=== PATIENT | female | born 1975 | race African-American/Black ===

== ENCOUNTER 2016-08-16 22:21 | Emergency (ER) | payer OTHER ==
[~2016-08-16] VITALS: Ht 160 cm; Wt 59.0 kg
[~2016-08-16 22:21] MED LIST: FLUT1DIS3 IH; MONT10TA21 PO; P20 PO; PRED10TA PO
[2016-08-16] MEDS ORDERED: METHYLPREDNISOLONE SOD SUCC 125 MG/2 ML VIAL IV STA (22:31)
[2016-08-16] MEDS ORDERED: IPRATROPIUM BROMIDE (0.02%) 0.5MG/2.5ML NEB HHN STA (22:31)
[2016-08-16] MEDS ORDERED: MAGNESIUM 2 G PREMIX 50 ML IV ONE (22:45)
[2016-08-16] MEDS ORDERED: AZITHROMYCIN 500 MG in DEXT 5% WATER 250 ML IV ONE (22:45)
[2016-08-16] MEDS ORDERED: CEFTRIAXONE 1 G PREMIX 50 ML IV ONE (22:45)
[2016-08-16] MEDS ORDERED: SODIUM CHLORIDE 0.9% 1000ML BAG (SEPSIS BOLUS) IV ONE (22:45)
[2016-08-16] MEDS ORDERED: ALBUTEROL (0.083%) 2.5MG/3ML NEB HHN SCH (23:00)
[2016-08-16 23:13] LABS: CHLORIDE 107 mEq/L (98-107); INDEX HEMOLYSI 1 (1-3); INDEX ICTERIC 1 (1-4); INDEX LIPEMIC 1 (1-3)
[2016-08-16 23:16] LABS: ALBUMIN 3.4 g/dL (3.4-5.0); ANION GAP 14; CALCIUM 8.6 mg/dL (8.5-10.1); CARBON DIOXIDE 24 mEq/L (21-32); LIPASE 241 IU/L (73-393); UREA NITROGEN BLOOD 8 mg/dL (7-21)
[2016-08-16 23:17] LABS: ETHANOL BLOOD < 10 mg/dL
[2016-08-16 23:18] LABS: HCG SCREEN NEGATIVE
[2016-08-16 23:19] LABS: BASOPHILS % 0.5 % (0.0-2.0); HEMATOCRIT. 36.2 % (36.0-48.0); HEMOGLOBIN. 11.9 g/dL (12.0-16.0); MEAN CORPUSCULAR HEMOGLOBIN 30.1 pg (28.0-32.0); MEAN CORPUSCULAR HGB CONC 32.9 g/dL (31.0-37.0); MEAN CORPUSCULAR VOLUME 91.6 fL (81.0-99.0); MEAN PLATELET VOLUME 7.1 fl (7.4-10.4); MONOCYTES % 3.4 % (2.0-8.0); NEUTROPHILS % 81.1 % (40.0-76.0); PLATELET 369 x1000/uL (130-400); RED BLOOD CELL COUNT 3.95 mill/uL (4.2-5.4); WHITE BLOOD COUNT 14.1 x1000/uL (4.5-11.0)
[2016-08-16 23:20] LABS: ALANINE AMINOTRANSFERASE 23 IU/L (13-61); eGFR > 60 mL/min (>60)
[2016-08-16 23:24] LABS: NT PRO B-TYPE NATRIURETIC PEP 326 pg/mL (5-125)
[2016-08-17 00:21] LABS: *AMPHETAMINES SCREEN URINE NEGATIVE (NEGATIVE); *BARBITURATES SCREEN URINE NEGATIVE (NEGATIVE); *BENZODIAZEPINES SCREEN URINE NEGATIVE (NEGATIVE); *COCAINE SCREEN URINE NEGATIVE (NEGATIVE); CANNABINOID URINE SCREEN NEGATIVE (NEGATIVE); ECSTASY MDMA SCREEN URINE NEGATIVE (NEGATIVE); METHADONE URINE SCREEN NEGATIVE (NEGATIVE); OPIATES URINE SCREEN NEGATIVE (NEGATIVE); PHENCYCLIDINE URINE SCREEN NEGATIVE (NEGATIVE)
[2016-08-17 01:06] LABS: BG BASE EXCESS -2.6 mmol/L (-2.0-2.0); BG DEOXYHEMOGLOBIN 1.7 % (0.0-5.0); BG FRACTION INSPIRED OXYGEN 28; BG HCO3 ACT 21.7 mmol/L (22.0-26.0); BG METHEMOGLOBIN 0.3 % (0.0-1.5); BG OXYGEN SATURATION 98.3 % (92.0-98.5); BG PCO2 35.9 mmHg (35.0-45.0); BG PO2 116.1 mmHg (75.0-100.0); BG SAMPLE SITE RIGHT RADIAL; BG TOTAL HEMOGLOBIN 11.6 g/dL (12.0-18.0); BG VENT MODE NASAL CANNULA
[2016-08-17] MEDS ORDERED: IPRATROPIUM BROMIDE (0.02%) 0.5MG/2.5ML NEB HHN STA (01:32)
[2016-08-17] MEDS ORDERED: ALBUTEROL (0.5%) 2.5MG/0.5ML NEB HHN ONE (01:59)
[2016-08-17] MEDS ORDERED: ALBUTEROL (0.083%) 2.5MG/3ML NEB HHN SCH (02:00)
[2016-08-17] MEDS ORDERED: IPRATROPIUM/ALBUTEROL 0.5-3(2.5)MG/3ML NEB ONE ×2 (02:01→02:07)
[2016-08-17 03:16] VITALS: BP 128/76
== END 2016-08-17 03:17 | disposition home or self-care (01) ==
LOC: ER 22:21
DX: J45.901 Unspecified asthma with (acute) exacerbation (principal); I10 Essential (primary) hypertension; Z79.899 Other long term (current) drug therapy
CPT/HCPCS: 36415; 36600; 71010; 80053; 80305; 82375; 82805; 83605; 83690; 83880; 84703; 85025; 85379; 87040; 87086; 87804; 93005; 96365; 96366; 96375; 99285; G0482; J0456; J0696; J2930; J3475; J7030; J7611; Z7610; J7060; J7620

== ENCOUNTER 2024-02-23 10:50 | Inpatient (IN) | payer OTHER ==
[~2024-02-23] VITALS: Ht 160 cm; Wt 62.7 kg
[~2024-02-23 10:50] MED LIST changes: +MONT-46 PO; -MONT10TA21 PO
[2024-02-23 11:58] VITALS: PULSE 65; RESP 22; O2SAT 97
[2024-02-23] MEDS: IPRATROPIUM BROMIDE (0.02%) 0.5MG/2.5ML NEB HHN NR (11:58)
[2024-02-23] MEDS: ALBUTEROL (0.083%) 2.5MG/3ML NEB HHN NR (11:58)
[2024-02-23 12:51] LABS: BG BASE EXCESS -2.2 mmol/L (-2.0-3.0); BG CARBOXYHEMOGLOBIN 0.3 % (0.5-1.5); BG DEOXYHEMOGLOBIN 0.3 % (0.0-5.0); BG FRACTION INSPIRED OXYGEN 60; BG HCO3 ACT 23.3 mmol/L (21.0-28.0); BG METHEMOGLOBIN 0.2 % (0.5-1.5); BG OXYGEN SATURATION 99.7 % (94.0-98.0); BG OXYHEMOGLOBIN 99.2 % (94.0-98.0); BG PCO2 42.6 mmHg (32.0-45.0); BG PH 7.355 (7.350-7.450); BG PO2 290.7 mmHg (83.0-108.0); BG SAMPLE SITE RIGHT RADIAL; BG TOTAL HEMOGLOBIN 9.7 g/dL (12.0-16.0); BG VENT MODE MASK - HHN TX
[2024-02-23] MEDS: METHYLPREDNISOLONE SOD SUCC 125MG/2ML (ACT-O-VIAL) IV NR (13:24)
[2024-02-23] MEDS: MAGNESIUM 2 G PREMIX 50 ML IV NR (13:24)
[2024-02-23] MEDS ORDERED: IPRATROPIUM BROMIDE (0.02%) 0.5MG/2.5ML NEB HHN PRN (13:45)
[2024-02-23 14:49] LABS: HEMATOCRIT. 27.4 % (36.0-48.0); HEMOGLOBIN. 8.7 g/dL (12.0-16.0); MEAN CORPUSCULAR HEMOGLOBIN 26.3 pg (28.0-32.0); MEAN CORPUSCULAR HGB CONC 31.7 g/dL (31.0-37.0); MEAN CORPUSCULAR VOLUME 82.9 fL (81.0-99.0); MEAN PLATELET VOLUME 7.1 fl (7.4-10.4); PLATELET 296 x1000/uL (130-400); RED BLOOD CELL COUNT 3.31 mill/uL (4.2-5.4); RED CELL DISTRIBUTION WIDTH 24.4 % (11.6-14.6); WHITE BLOOD COUNT 7.1 x1000/uL (4.5-11.0)
[2024-02-23 14:55] LABS: DIFFERENTIAL COMMENT 1
[2024-02-23 15:15] LABS: LACTIC ACID 3.9 mmol/L (0.4-2.0)
[2024-02-23] MEDS: SODIUM CHLORIDE 0.45% 1,000 ML IV SCH (15:29)
[2024-02-23] MEDS: METHYLPREDNISOLONE SOD SUCC 40MG/ML (ACT-O-VIAL) IV SCH (15:29)
[2024-02-23 16:19] LABS: CARBON DIOXIDE 22 mEq/L (21-32); CHLORIDE 107 mEq/L (98-107); POTASSIUM 3.3 mEq/L (3.5-5.1); SODIUM 142 mEq/L (136-145)
[2024-02-23 16:20] LABS: CALCIUM 8.8 mg/dL (8.7-10.4)
[2024-02-23 16:24] LABS: CREATININE 0.6 mg/dL (0.6-1.0); IRON 20 ug/dL (50-170)
[2024-02-23 16:25] LABS: GLUCOSE 196 mg/dL (70-105); UREA NITROGEN BLOOD 9 mg/dL (9-23)
[2024-02-23 16:27] LABS: PHOSPHORUS 2.3 mg/dL (2.5-4.9); TOTAL IRON BINDING CAPACITY 270 ug/dl (250-425)
[2024-02-23 16:29] LABS: TROPONIN I HIGH SENSITIVITY < 4 ng/L (3.0-34)
[2024-02-23 16:36] LABS: FERRITIN 10 ng/mL (10-291)
[2024-02-23 16:37] LABS: VITAMIN B12 SERUM 489 pg/mL (211-911)
[2024-02-23 16:50] LABS: ANISOCYTOSIS 2+; PLATELET ESTIMATE NORMAL
[2024-02-23 17:20] LABS: CLARITY URINE CLEAR (CLEAR); COLOR URINE YELLOW (YELLOW); GLUCOSE URINE 3+ (NEGATIVE); KETONES URINE 1+ (NEGATIVE); LEUKOCYTE ESTERASE URINE NEGATIVE (NEGATIVE); NITRITE URINE POSITIVE (NEGATIVE); OCCULT BLOOD URINE NEGATIVE (NEGATIVE); PROTEIN URINE 1+ (NEGATIVE); SPECIFIC GRAVITY URINE 1.021 (1.005-1.030); UROBILINOGEN URINE 0.2 E.U./dL (0.2-1.0)
[2024-02-23 17:29] LABS: *AMPHETAMINES SCREEN URINE NEGATIVE (NEGATIVE); *BARBITURATES SCREEN URINE NEGATIVE (NEGATIVE); *BENZODIAZEPINES SCREEN URINE NEGATIVE (NEGATIVE); *COCAINE SCREEN URINE NEGATIVE (NEGATIVE); METHADONE URINE SCREEN NEGATIVE (NEGATIVE); OPIATES URINE SCREEN NEGATIVE (NEGATIVE)
[2024-02-23 17:30] LABS: CANNABINOID URINE SCREEN PRESUMPTIVE POSITIVE (NEGATIVE); ECSTASY MDMA SCREEN URINE NEGATIVE (NEGATIVE); PHENCYCLIDINE URINE SCREEN NEGATIVE (NEGATIVE)
[2024-02-23] MEDS ORDERED: POTASSIUM CHLORIDE 20MEQ TABLET SR PO NR (17:45)
[2024-02-23 17:47] LABS: BACTERIA URINE 3+; RBC URINE 0-2 /hpf (0-2); SQUAMOUS EPITHELIAL CELL URINE FEW /lpf (RARE/1+); WBC URINE 0-2 /hpf (0-2)
[2024-02-23] MEDS ORDERED: IPRATROPIUM BROMIDE (0.02%) 0.5MG/2.5ML NEB HHN SCH (18:00)
[2024-02-23] MEDS: POTASSIUM PHOSPHATE 15 MMOL in DEXT 5% WATER 245 ML IV NR (18:56)
[2024-02-23 19:57] VITALS: PULSE 100; RESP 20; O2SAT 97
[2024-02-23] MEDS: IPRATROPIUM/ALBUTEROL 0.5-3(2.5)MG/3ML NEB HHN SCH (19:57)
[2024-02-23 20:00] VITALS: BP 180/95; RESP 18; TEMP 36.83628; O2SAT 100
[2024-02-23] MEDS: FAMOTIDINE 20MG TABLET PO SCH (20:53)
[2024-02-23] MEDS: HYDRALAZINE 20MG/ML VIAL IV PRN (21:02)
[2024-02-23 21:58] VITALS: BP 156/66; RESP 18; TEMP 36.83628; O2SAT 100
[2024-02-23 23:20] VITALS: BP 186/96; PULSE 91; RESP 19; TEMP 36.6404
[2024-02-23] MEDS: ACETAMINOPHEN 325MG TABLET PO PRN (23:25)
[2024-02-23] MEDS: MONTELUKAST SODIUM 10MG TABLET PO SCH (23:25)
[2024-02-23 23:29] VITALS: BP 186/96; PULSE 91; RESP 19; TEMP 36.61404; O2SAT 100
[2024-02-24] VITALS (12 sets, daily range): BP systolic 122–173; BP diastolic 87–98; PULSE 84–111; RESP 15–23; TEMP 36.55848–36.9474; O2SAT 98–100
[2024-02-24 00:08] LABS: CREATINE KINASE 114 IU/L (34-145)
[2024-02-24 00:11] LABS: CREATINE KINASE MB FRACTION 2.1 ng/mL (0.5-3.6)
[2024-02-24 00:54] LABS: TROPONIN I HIGH SENSITIVITY < 4 ng/L (3.0-34)
[2024-02-24] MEDS: LORATADINE 10MG TABLET PO SCH (09:05)
[2024-02-24] MEDS ORDERED: IPRATROPIUM/ALBUTEROL 0.5-3(2.5)MG/3ML NEB HHN PRN ×2 (10:30→12:00)
[2024-02-24 10:36] LABS: HEMATOCRIT. 32.5 % (36.0-48.0); HEMOGLOBIN. 9.9 g/dL (12.0-16.0); MEAN CORPUSCULAR HEMOGLOBIN 25.8 pg (28.0-32.0); MEAN CORPUSCULAR HGB CONC 30.5 g/dL (31.0-37.0); MEAN CORPUSCULAR VOLUME 84.9 fL (81.0-99.0); MEAN PLATELET VOLUME 6.9 fl (7.4-10.4); PLATELET 346 x1000/uL (130-400); RED BLOOD CELL COUNT 3.83 mill/uL (4.2-5.4); RED CELL DISTRIBUTION WIDTH 23.7 % (11.6-14.6); WHITE BLOOD COUNT 6.6 x1000/uL (4.5-11.0)
[2024-02-24 10:40] LABS: DIFFERENTIAL COMMENT 1
[2024-02-24 10:43] LABS: CARBON DIOXIDE 19 mEq/L (21-32); CHLORIDE 101 mEq/L (98-107); POTASSIUM 3.4 mEq/L (3.5-5.1); SODIUM 132 mEq/L (136-145)
[2024-02-24 10:44] LABS: CALCIUM 10.3 mg/dL (8.7-10.4)
[2024-02-24 10:49] LABS: CREATININE 0.6 mg/dL (0.6-1.0); GLUCOSE 124 mg/dL (70-105); TRIGLYCERIDE 41 mg/dL (0-150); UREA NITROGEN BLOOD 7 mg/dL (9-23)
[2024-02-24 10:50] LABS: LDL CHOLESTEROL 113 mg/dL (5-100)
[2024-02-24 10:51] LABS: ALANINE AMINOTRANSFERASE 34 IU/L (10-49); ALBUMIN 4.8 g/dL (3.2-4.8); ASPARTATE AMINOTRANSFERASE 50 IU/L (<34); BILIRUBIN DIRECT 0.2 mg/dL (<=3.0); BILIRUBIN TOTAL 0.6 mg/dL (0.1-1.0); CHOLESTEROL 249 mg/dL (<200); HDL CHOLESTEROL 129 mg/dL (>65); PROTEIN TOTAL 9.3 g/dL (6.0-8.3)
[2024-02-24 10:53] LABS: T4 FREE 0.99 ng/dL (0.89-1.76); THYROID STIMULATING HORMONE 0.94 uIU/mL (0.55-4.78)
[2024-02-24] MEDS: AMLODIPINE 2.5MG TABLET PO SCH (11:27)
[2024-02-24] MEDS: LOSARTAN 25 MG TABLET PO SCH (14:18)
[2024-02-24] MEDS: SODIUM CHLORIDE 0.45% 1,000 ML IV SCH (14:51)
[2024-02-24 17:26] LABS: ANISOCYTOSIS 2+; PLATELET ESTIMATE NORMAL
[2024-02-25] VITALS (12 sets, daily range): BP systolic 129–158; BP diastolic 61–90; PULSE 69–120; RESP 16–21; TEMP 36.6696–36.9474; O2SAT 94–99
[2024-02-25 07:44] LABS: CARBON DIOXIDE 21 mEq/L (21-32); CHLORIDE 104 mEq/L (98-107); POTASSIUM 3.9 mEq/L (3.5-5.1); SODIUM 136 mEq/L (136-145)
[2024-02-25 07:45] LABS: CALCIUM 9.8 mg/dL (8.7-10.4)
[2024-02-25 07:48] LABS: CREATININE 0.6 mg/dL (0.6-1.0)
[2024-02-25 07:49] LABS: GLUCOSE 158 mg/dL (70-105)
[2024-02-25 07:50] LABS: UREA NITROGEN BLOOD 8 mg/dL (9-23)
[2024-02-25] MEDS: NITROFURANTOIN 100MG M/M CAPSULE PO SCH (12:05)
[2024-02-25] MEDS: GUAIFENESIN 600MG ER TABLET PO SCH (21:15)
[2024-02-25 22:03] LABS: LACTIC ACID 2.1 mmol/L (0.4-2.0)
[2024-02-26] VITALS (8 sets, daily range): BP systolic 151–182; BP diastolic 71–100; PULSE 75–128; RESP 16–24; TEMP 36.6696–36.83628; O2SAT 95–100
[2024-02-26 06:46] LABS: HEMATOCRIT 28.4 % (36.0-48.0); HEMOGLOBIN 8.7 g/dL (12.0-16.0); MEAN CORPUSCULAR HEMOGLOBIN 25.4 pg (28.0-32.0); MEAN CORPUSCULAR HGB CONC 30.6 g/dL (31.0-37.0); MEAN CORPUSCULAR VOLUME 83.1 fL (81.0-99.0); PLATELET 323 x1000/uL (130-400); RED BLOOD CELL COUNT 3.41 mill/uL (4.2-5.4); WHITE BLOOD COUNT 9.9 x1000/uL (4.5-11.0)
[2024-02-26] MEDS ORDERED: CLONIDINE 0.1MG TABLET PO PRN (10:15)
[2024-02-26] MEDS ORDERED: GUAI600T44 PO (12:46)
[2024-02-26] MEDS ORDERED: NITR100C11 PO (12:46)
[2024-02-26] MEDS ORDERED: CLAR10 PO (12:46)
[2024-02-26] MEDS ORDERED: MONT-46 PO (12:46)
[2024-02-26] MEDS ORDERED: IPRA3AMP9 HHN (12:46)
== END 2024-02-26 17:00 | disposition home or self-care (01) | DRG 205 ==
LOC: ER 10:50 → EDBEDREQ 11:16 → 5WST 13:14 → EDBEDREQ 13:17 → EDBEDREQTM 13:17 → 3WST 22:14
PROVIDERS: ADMIT Preventive Medicine Clinical Informatics; ATTEND Preventive Medicine Clinical Informatics
DX: J68.0 Bronchitis and pneumonitis due to chemicals, gases, fumes and vapors (principal); J96.01 Acute respiratory failure with hypoxia; J45.901 Unspecified asthma with (acute) exacerbation; R65.10 Systemic inflammatory response syndrome (SIRS) of non-infectious origin without acute organ dysfunction; E87.20 Acidosis, unspecified; N39.0 Urinary tract infection, site not specified; D64.9 Anemia, unspecified; Z20.822 Contact with and (suspected) exposure to COVID-19; I10 Essential (primary) hypertension; E87.6 Hypokalemia; Z79.51 Long term (current) use of inhaled steroids
CPT/HCPCS: 36415; 36600; 71045; 80048; 80061; 80076; 80305; 81003; 82306; 82375; 82550; 82553; 82607; 82728; 82746; 82805; 83036; 83540; 83550; 83605; 83735; 83880; 84100; 84145; 84439; 84443; 84484; 85025; 85027; 87426; 93005; 94640; 99285; C1893; J0360; J2919; J2920; J3475; J3490; J7060